=== PATIENT | male | born 1965 | race Caucasian/White ===

== ENCOUNTER 2020-06-02 02:03 | Emergency (ER) | payer OTHER ==
[~2020-06-02] VITALS: Ht 203.2 cm; Wt 104.3 kg
--- NOTE | 2020-06-02 02:05 | NUR ---
ARRIVAL PT ARRIVED VIA EMS TO ER 3 WITH C/O N/V/D AND BLOOD IN THE STOOL. PT STATES N/V/D WITH BLOOD IN STOOL SINCE EARLIER TONIGHT. STATES WAS SITTING ON TOILET WHEN HE GOT DIZZY, WEAK, AND PASSED OUT. PT STATES HX OF INTERNAL BLEEDING HEMORRHOIDS.
[2020-06-02 02:12] VITALS: BP 105/71
[2020-06-02 02:19] VITALS: BP 105/71
[2020-06-02] MEDS ORDERED: NS 1000ML 1,000 ML ONE (02:24)
[2020-06-02] MEDS ORDERED: NS 1000ML 1,000 ML IV STA (02:25)
--- NOTE | 2020-06-02 02:28 | ER.PDOC ---
General Chief Complaint: PASSING BLOOD IN STOOL Stated Complaint: PASSING BLOOD IN STOOL Time seen by MD: 02:25 Source: patient Exam Limitations: no limitations History of Present Illness Initial Comments Patient complaining of passing bright red blood with stool since last evening. He told me that this has happened about 9-10 times. No abdominal pain. No vomiting blood. He has a history of hemorrhoids. He denies rectal pain. Timing/Duration: 4-6 hours Severity/Quality: moderate Associated Symptoms: bleeding w/o stool, blood mixed w/stool Allergies: Coded Allergies: No Known Allergies (Unverified , 06/24/16) Past Medical History Medical History: hypertension Surgical History: cholecystectomy, other Family History Significant Family History: no pertinent family hx Social History Smoking: less than 1 pack/day Alcohol Use: none Drug Use: none Constitutional: no symptoms reported EENTM: no symptoms reported Respiratory: no symptoms reported Cardiovascular: no symptoms reported ABD/GI (ROS): see HPI Genitourinary: no symptoms reported All Other Systems: Reviewed and Negative Physical Exam General Appearance: No Apparent Distress, WD/WN Neck: nml inspection, non-tender Respiratory: chest non-tender, lungs clear, normal breath sounds, no respiratory distress, no accessory muscle use Cardiovascular: Normal Peripheral Pulses, Regular Rate, Rhythm, No Edema, No Gallop, No JVD, No Murmur Gastrointestinal: Normal Bowel Sounds, No Organomegaly, No Pulsatile Mass, Non Tender, Soft Rectal: Heme Positive Stool, Other (bright red blood at anal area) Back: Normal Inspection Extremities: Normal Range of Motion, Non-Tender, Normal Inspection, No Pedal Edema, No Calf Tenderness, Normal Capillary Refill Neurologic/Psychiatric: composite laminator II-XII NML as Tested, No Motor/Sensory Deficits, Alert, Normal Mood/Affect, Oriented x 3 Skin: Normal Color, Warm/Dry Lymphatic: No Adenopathy Results/Orders Results/Orders Orders - STEVEN BEST MD Cbc With Auto Diff (06/02/20 02:22) Comprehensive Metabolic Panel (06/02/20 02:22) PT (06/02/20 02:22) Partial Thromboplastin Time. (06/02/20 02:22) 0.9 % Sodium Chloride (Ns 1000ml) (06/02/20 02:25) 0.9 % Sodium Chloride (Ns 1000ml) (06/02/20 02:24) Vital Signs Date Time Temp Pulse Resp B/P (MAP) Pulse Ox O2 Delivery O2 Flow Rate FiO2 06/02/20 03:05 97.8 63 18 102/63 (76) 100 Room Air 06/02/20 02:19 97.8 60 18 105/71 (82) 100 Room Air 06/02/20 02:12 97.8 60 18 100 06/02/20 02:12 97.8 60 18 06/02/20 02:12 97.8 60 18 105/71 (82) 100 Room Air Administered Medications Medications (Trade) Dose Ordered Sig/Patty Route PRN Reason Start Time Stop Time Status Last Admin Dose Admin Sodium Chloride 1,000 ml @ 1,200 mls/hr Q50M STAT IV 06/02/20 02:25 06/02/20 03:14 UNV 06/02/20 02:29 1,200 MLS/HR Laboratory Tests Test 06/02/20 02:20 White Blood Count 11.0 10^3/uL (4.5-11.0) Red Blood Count 3.65 10^6/uL (4.50-5.90) L Hemoglobin 11.7 g/dL (13.9-16.3) L Hematocrit 34.2 % (37.0-53.0) L Mean Corpuscular Volume 93.7 fL (78-100) Mean Corpuscular Hemoglobin 32.1 pg (26-34) Mean Corpuscular Hemoglobin Concent 34.2 g/dL (33-36.5) Red Cell Distribution Width 12.9 % (11.5-14.5) Platelet Count 232 10^3/uL (150-400) Mean Platelet Volume 9.3 fL (7.8-11.0) Neutrophils (%) (Auto) 83.5 % (41.0-85.0) Lymphocytes (%) (Auto) 9.3 % (24.0-44.0) L Monocytes (%) (Auto) 4.7 % (5.0-12.0) L Neutrophils # (Auto) 9.2 10^3/uL (1.8-7.7) H Lymphocytes # (Auto) 1.03 10^3/uL1 (1.0-4.8) Monocytes # (Auto) 0.5 10^3/uL (0.3-0.8) Absolute Immature Granulocyte (auto 0.02 10^3 u/L (0-2) Absolute Eosinophils (auto) 0.2 10^3/uL (0.0-0.2) Immature Granulocytes % 0.20 % (0.00-0.50) Eosinophils % 1.9 % (0.0-5.0) Basophils % 0.4 % (0.0-0.2) H Basophils # 0.0 10^3/uL (0.0-0.1) Prothrombin Time 10.3 SEC (9.3-11.3) Prothrombin Time INR (Non-Therap) 1.0 Activated Partial Thromboplast Time 19.4 SEC (24.67-30.72) POC Stool Occult Blood POSITIVE (NEGATIVE) Sodium Level 143 mmol/L (132-145) Potassium Level 3.8 mmol/L (3.6-5.2) Chloride Level 108.0 mmol/L (96-109) Carbon Dioxide Level 26.0 mmol/L (20.0-32) Anion Gap 12.8 Blood Urea Nitrogen 17 mg/dL (7-18) Creatinine 1.12 mg/dL (0.59-1.40) Estimated GFR () 82.1 (>/=60) Est GFR (CKD-EPI)(Non-Afr [place]) 67.8 (>/=60) BUN/Creatinine Ratio 15.0 Glucose Level 105 mg/dL (70-110) Calcium Level 8.8 mg/dL (8.4-10.5) Total Bilirubin 0.3 mg/dL (0.2-1.0) Aspartate Amino Transferase (AST) 14 U/L (0-35) Alanine Aminotransferase (ALT) 17 U/L (12-78) Alkaline Phosphatase 64 U/L (50-136) Total Protein 6.0 g/dL (6.4-8.2) L Albumin 2.8 g/dL (3.4-5.0) L Globulin 3.2 Albumin/Globulin Ratio 0.875 Progress Progress I wanted to admit patient for observation but he refused. He signed and left AGAINST MEDICAL ADVICE. He understands that leaving AGAINST MEDICAL ADVICE may result worsening bleeding, hypovolemic shock, anemia and . I counseled him to follow-up with his PCP and to have a colonoscopy scheduled as soon as possible. I also told him to return to the ED if bleeding gets worse or has concerns. I told him that since he has a history of hemorrhoids, passing bright red blood with stool is likely going to be bleeding hemorrhoids but underlying malignancy cannot be ruled out except he has a colonoscopy. I discussed all this with him in details and he voiced understanding. ER DEPART Departure Time of Disposition: 03:11 Disposition: 07 AGAINST MEDICAL ADVICE Impression: Primary Impression: Hemorrhoids, internal, with bleeding Condition: Against Medical Advice Referrals: PCP,UNKNOWN (PCP) PRIMARY CARE PROVIDER Duration or Time Spent with Pa: 30 min ESTEPHANIA,STEVEN Ellis MD Jun 02, 2020 02:28
[2020-06-02 02:54] LABS: BASOPHIL % 0.4 % (0.0-0.2); EOSINOPHIL # 0.2 10^3/uL (0.0-0.2); EOSINOPHIL % 1.9 % (0.0-5.0); LYMPHOCYTES # 1.03 10^3/uL1 (1.0-4.8); LYMPHOCYTES % 9.3 % (24.0-44.0); MEAN CORP HGB 32.1 pg (26-34); MONOCYTES # 0.5 10^3/uL (0.3-0.8); MONOCYTES % 4.7 % (5.0-12.0); NEUTROPHIL # 9.2 10^3/uL (1.8-7.7); NEUTROPHILS % 83.5 % (41.0-85.0); PLATELET COUNT 232 10^3/uL (150-400); RED CELL DISTRIBUTION WIDTH 12.9 % (11.5-14.5)
[2020-06-02 02:56] LABS: CALCIUM 8.8 mg/dL (8.4-10.5)
[2020-06-02 03:05] VITALS: BP 102/63
--- NOTE | 2020-06-02 03:16 | NUR ---
AMA PT ASKS TO SIGN AMA AFTER DR. BEST WANTING TO ADMIT PT FOR OBS. PT STATES "I DON'T SEE ANY REASON WHY I NEED TO STAY." PT ADVISED OF RISKS OF NOT STAYING AND PT ACKNOWLEDGES UNDERSTANDING. STATES HE STILL WANTS TO LEAVE AMA. PT GIVEN AMA FORM TO SIGN.
== END 2020-06-02 03:08 | disposition left against medical advice (07) ==
LOC: EDBD 02:03 → ER 02:03
DX: K64.8 Other hemorrhoids (principal); I10 Essential (primary) hypertension; F17.210 Nicotine dependence, cigarettes, uncomplicated; Z87.19 Personal history of other diseases of the digestive system; Z90.49 Acquired absence of other specified parts of digestive tract
CPT/HCPCS: 36415; 80053; 82272; 85025; 85610; 85730; 96360; 99284; J7030